=== PATIENT | male | born 1970 | race Caucasian/White ===

== ENCOUNTER 2017-09-01 00:05 | Inpatient (IN) | payer OTHER ==
[~2017-09-01] VITALS: Ht 172.7 cm; Wt 108.9 kg
--- NOTE | 2017-09-01 00:29 | NUR ---
PT TO CT VIA [facility].
--- NOTE | 2017-09-01 00:29 | NUR ---
IV STARTED LAC IV#18. BLOOD DRAWN AND SENT TO LAB.
--- NOTE | 2017-09-01 00:33 | NUR ---
PT RETURN FROM CT.
[2017-09-01 00:58] LABS: BASOPHILS % (AUTO) 0.3 % (0.0-2.0); EOSINOPHILS # (AUTO) 0.2 /CMM (0.0-0.7); EOSINOPHILS % (AUTO) 1.8 % (0.0-6.0); HEMATOCRIT 44 % (39-51); HEMOGLOBIN 15.1 g/dL (13.5-17.5); LYMPHOCYTES # (AUTO) 1.7 /CMM (0.8-4.8); LYMPHOCYTES % (AUTO) 14.3 % (20.0-44.0); MEAN CORPUSCULAR HEMOGLOBIN 30 PG (26.0-33.0); MEAN CORPUSCULAR HGB CONC 34 g/dl (31.0-36.0); MEAN CORPUSCULAR VOLUME 88 fL (80-96); MONOCYTES % (AUTO) 8.2 % (2.0-12.0); NEUTROPHILS # (AUTO) 8.9 /CMM (1.8-8.9); NEUTROPHILS % (AUTO) 75.4 % (43.0-81.0); PLATELET COUNT (AUTO) 231 /CMM (150-450); RDW COEFFICIENT OF VARIATION 13.7 (11.5-15.0); RED BLOOD CELL COUNT(AUTO) 5.01 MIL/uL (4.5-6.0); WHITE BLOOD COUNT (AUTO) 11.8 K/uL (4.3-11.0)
[2017-09-01 01:02] LABS: CALCIUM, SERUM 9.4 mg/dL (8.5-10.1); CARBON DIOXIDE 23 mmol/L (21-32); CHLORIDE 100 mmol/L (98-107); CREATININE 0.8 mg/dL (0.6-1.3); GLUCOSE 115 mg/dL (74-106); POTASSIUM 3.6 mmol/L (3.5-5.1); SODIUM SERUM 136 mmol/L (136-145); UREA NITROGEN, BLOOD 22 mg/dL (7-18)
[2017-09-01 01:12] LABS: ALANINE AMINOTRANSFERASE 30 U/L (12-78); ALBUMIN 4.2 g/dL (3.4-5.0); ALCOHOL, BLOOD < 3 mg/dL (0-0); ALKALINE PHOSPHATASE 100 U/L (46-116); ASPARTATE AMINOTRANSFERASE 26 U/L (15-37); BILIRUBIN,DIRECT 0.1 mg/dL (0.0-0.2); BILIRUBIN,TOTAL 0.5 mg/dL (0.2-1.0); SALICYLATE 4.8 mg/dL (2.8-20.0); TOTAL PROTEIN, SERUM 8.3 g/dL (6.4-8.2)
[2017-09-01 01:13] LABS: ACETAMINOPHEN 0 ug/ml (10-30)
[2017-09-01 01:32] LABS: APPEARANCE,URINE CLEAR (CLEAR); BILIRUBIN,URINE NEGATIVE (NEGATIVE); BLOOD, URINE NEGATIVE Ery/uL (NEGATIVE); COLOR,URINE YELLOW (YELLOW); KETONES,URINE NEGATIVE (NEGATIVE); LEUKOCYTE ESTERASE ,URINE NEGATIVE (NEGATIVE); NITRITE, URINE NEGATIVE (NEGATIVE); PROTEIN,URINE TRACE mg/dl (NEGATIVE); UGLUCOSE NEGATIVE (NEGATIVE)
--- NOTE | 2017-09-01 01:40 | NUR ---
US IN PROGRESS AT THE BEDSIDE.
[2017-09-01 01:42] LABS: RBC,URINE 0-2 /HPF (0-2); WBC,URINE 0-2 /HPF (0-3)
[2017-09-01 01:43] LABS: BACTERIA,URINE None seen /HPF (None Seen); MUCUS,URINE Few /LPF (None Seen); SQUAMOUS EPITHELIAL CELL,UR Few /HPF (None Seen)
--- NOTE | 2017-09-01 02:25 | NUR ---
TELE [id number]
--- NOTE | 2017-09-01 02:26 | NUR ---
CALLING REPORT TO TELE - ROSE CASTANEDA
--- NOTE | 2017-09-01 02:35 | NUR ---
PT IS AMBULATING TO THE BATHROOM WITH A CANE AND ASSISTANCE FROM EMT.
[2017-09-01] MEDS ORDERED: oxyCODONE/APAP (5/325 MG) 1 UDTAB TABLET ONE (02:43)
[2017-09-01] MEDS ORDERED: IV NS 0.9% 1,000 ML IV PRN (02:52)
[2017-09-01] MEDS ORDERED: ACETAMINOPHEN 325 MG TABLET PO PRN (03:00)
[2017-09-01] MEDS ORDERED: MORPHINE SULFATE INJ 2 MG/ML DISP.SYRIN IV PRN (03:00)
[2017-09-01] MEDS ORDERED: MAGNESIUM HYDROXIDE 30 ML UDC PO PRN (03:00)
[2017-09-01] MEDS ORDERED: HYDROCODONE/APAP 5/325MG 1 EACH TABLET PO PRN (03:00)
[2017-09-01] MEDS ORDERED: Z GUARD REMEDY 2 OZ OINT TP PRN (03:00)
[2017-09-01] MEDS ORDERED: MAG HYDROX/AL HYDROX/SIMETH 30 ML UDC PO PRN (03:00)
[2017-09-01] MEDS ORDERED: ONDANSETRON HCL/PF 4 MG/2 ML VIAL IVP PRN (03:00)
--- NOTE | 2017-09-01 03:00 | NUR ---
RECEIVED REPORT FROM CHARGE NURSE CLARITA, PATIENT IS ABOUT TO BE TRANSFERRED FROM ER.
[2017-09-01] MEDS ORDERED: QUET200T PO (03:06)
[2017-09-01] MEDS ORDERED: GABA600T2 PO (03:06)
[2017-09-01] MEDS ORDERED: METH500T PO (03:06)
[2017-09-01] MEDS ORDERED: ESCI20TA PO (03:06)
[2017-09-01] MEDS ORDERED: PROP20TA7 PO (03:06)
[2017-09-01] MEDS ORDERED: BUPR8TAB4 SL (03:06)
[2017-09-01] MEDS ORDERED: NALO25TA PO (03:06)
[2017-09-01] MEDS ORDERED: CLON0.2T PO (03:06)
--- NOTE | 2017-09-01 03:10 | NUR ---
RECEIVED PATIENT, ALERT/ORIENTEDX2. PATIENT WAS TRANSFERRED FORM ER ON A GURNEY. WAS ABLE TO AMBULATE FROM THE DOOR TO THE BED WITH CANE AND 1 PERSON ASSIST FOR SAFETY. IN STABLE CONDITION. PATIENT APPEARS IN SLIGHT DISTRESS, REPORTS PAIN IN THE ABDOMINAL AREA 6/10. RESPIRATIONS EVEN AND UNLABORED, ON ROOM AIR, O2 SATURATION OF 98%. PATIENT ADMITTED WITH MS STATUS. LEFT AC SL 18G, PATENT AND INTACT. PATIENT WAS ASSISTED INTO BED, MADE COMFORTABLE. SAFETY MEASURES PLACED, BED IN LOW LOCKED POSITION, SIDE RAILS UP X2, CALL LIGHT WITHIN EASY REACH. WILL ADMIT THE PATIENT PER MD ORDERS AND CONTINUE TO MONITOR.
[2017-09-01] MEDS: MORPHINE SULFATE INJ 4 MG/ML DISP.SYRIN IV PRN ×2 (03:52→16:58)
[2017-09-01 04:00] VITALS: BP 165/90
[2017-09-01 05:00] VITALS: BP 165/90
--- NOTE | 2017-09-01 06:49 | NUR ---
MS RN CLOSING NOTE PATIENT IN BED, ASLEEP, EASILY AROUSED WITH VERBAL STIMULI, ORIENTED TO NAME AND PLACE BUT UNABLE TO RECALL DETAILS AND WORDS WHEN ASKED QUESTIONS. PATIENT ON ROOM AIR, TOLERATES WELL. IN NO APPARENT DISTRESS OR DISCOMFORT AT THIS TIME. RESPIRATIONS EVEN AND UNLABORED, DENIES PAIN AT THIS TIME. PATIENT WAS GIVEN MORPHINE 2MG AT 0352 HOUR FOR PAIN IN THE ABDOMINAL AREA. LAC PERIPHERAL IV 18G, WITH FLUIDS RUNNING AT 75 ML/HR. PATIENT WAS PLACED ON NPO STATUS PER MD ORDER. WAS KEPT CLEAN AND COMFORTABLE. ALL NEEDS ATTENDED. SAFETY MEASURES IN PLACE, BED IN LOW LOCKED POSITION, SIDE RAILS UP X2, CALL LIGHT WITHIN EASY REACH. WILL ENDORSE TO AM NURSE FOR CONTINUITY OF CARE.
--- NOTE | 2017-09-01 08:00 | NUR ---
m/s sawmill equipment operator: initial assessment received pt in bed asleep, but arousable. no s/s of resp. distress noted. on ivf, infusing well. call light within reach. will continue to monitor.
[2017-09-01 08:34] VITALS: BP_SYST 112; BP_SYST 138; BP_DIAS 54; BP_DIAS 65
--- NOTE | 2017-09-01 08:52 | NUR ---
MS RN NOTES RECEIVED REPORT FROM AM NURSE. PATIENT RECEIVED RESTING INSIDE ROOM, SLEEPING BUT AROUSABLE THROUGH VERBAL AND TACTILE STIMULI. REMAINS CALM AND RELAXED. NO SOB OR ACUTE DISTRESS NOTED. WILL CONTINUE TO MONITOR
--- NOTE | 2017-09-01 19:10 | NUR ---
MS RN NOTES PATIENT FOR DISCHARGE. DISCHARGE TEACHING PROVIDED. EXITCARE INSTRUCTIONS PROVIDED. PATIENT LEFT IN STABLE CONDITION. BREATHING EVEN AND UNLABORED. NO CHANGES IN LOC NOTED. AMBULATORY WITH CANE. TAXI VOUCHER PROVIDED. ASSISTED DURING DISCHARGE, NO NEW SKIN BREAKDOWN NOTED. ALL BELONGINGS COMPLETE UPON DISCHARGE. ASSISTED DURING TRANSFER TO TAXI.
== END 2017-09-01 18:38 | disposition home or self-care (01) | DRG 446 ==
LOC: ER 00:09 → TELE 02:48 → MED 03:51
PROVIDERS: ADMIT Internal Medicine; ATTEND Internal Medicine
DX: K80.50 Calculus of bile duct without cholangitis or cholecystitis without obstruction (principal); E66.01 Morbid (severe) obesity due to excess calories; Z68.36 Body mass index [BMI] 36.0-36.9, adult; Z79.899 Other long term (current) drug therapy; F41.9 Anxiety disorder, unspecified; F10.21 Alcohol dependence, in remission
CPT/HCPCS: 36415; 70450-TC; 76705-TC; 80048-TC; 80076-TC; 80305; 81000-TC; 82140-TC; 85025-TC; 87081-TC; A4606; G0480; J2270; J7030; Z7610